=== PATIENT | male | born 1930 | race Caucasian/White ===

== ENCOUNTER 2018-11-07 12:14 | Inpatient (IN) | payer MEDICARE, BC ==
[2018-11-07] MEDS ORDERED: Aspirin Chewable 81 MG TAB ONE (12:38)
[2018-11-07] MEDS ORDERED: Nitroglycerin 0.4 MG TAB (25 Tab Bottle) ONE (12:40)
[2018-11-07] MEDS ORDERED: Diltiazem 125 MG/25 ML ONE (12:53)
[2018-11-07 12:58] LABS: #Basophils 0.1 thou/uL (0.0-0.2); #Eosinphils 0.1 thou/uL (0.0-0.7); #Lymphocytes 2.6 thou/uL (1.20-3.40); #Monocytes 0.8 thou/uL (0.11-0.59); #Neutrophils 5.9 thou/uL (1.40-6.50); %Basophils 1.3 % (0.0-1.0); %Eosinophils 1.5 % (0.0-10.0); %Lymphocytes 27.1 % (21.0-51.0); %Monocytes 8.3 % (0.0-10.0); %Neutrophils 61.8 % (42.0-75.0); Mean Corpuscular HGB CONC 32.5 g/dL (32.0-36.0); Mean Corpuscular Hemoglobin 29.6 pg (27.0-31.0); Mean Corpuscular Volume 91.1 fL (78.0-98.0); Mean Platelet Volume 8.3 fL (7.4-10.4); Platelet Count 239 thou/uL (130-400); RBC Distribution Width 13.1 % (11.5-14.5); Red Blood Cell (RBC) Count 5.06 mill/uL (4.70-6.10); White Blood Cell (WBC) Count 9.6 thou/uL (4.8-10.8)
--- NOTE | 2018-11-07 13:02 | RAD ---
RADIOGRAPH CHEST 1 VIEW: HISTORY: 88-year-old male with dyspnea. FINDINGS: There are no air space densities, pulmonary edema, pneumothorax, or cardiomegaly. The lateral costop hrenic angles are sharp. IMPRESSION: No acute cardiopulmonary findings. steve [] POS: AMADOR
[2018-11-07 13:04] LABS: ALT (SGPT) 29 U/L (8-55); AST (SGOT) 20 U/L (5-34); Albumin 3.7 g/dL (3.4-4.8); Alkaline Phosphatase 73 U/L (40-150); Anion Gap 11 mmol/L (10-20); BUN (Urea Nitrogen) 28 mg/dL (8.4-25.7); Bilirubin, Total 0.3 mg/dL (0.2-1.2); Calc. Creatinine Clearance 0 mL/min (70-130); Calcium 8.7 mg/dL (7.8-10.44); Carbon Dioxide 25 mmol/L (23-31); Chloride 109 mmol/L (98-107); Estimated GFR-MDRD 43; Globulin 3.8 g/dL (2.4-3.5); Glucose 89 mg/dL (83-110); Potassium 4.4 mmol/L (3.5-5.1); Protein, Total 7.5 g/dL (5.8-8.1); Sodium 141 mmol/L (136-145)
[2018-11-07 16:13] LABS: Troponin I 0.037 ng/mL (< 0.028)
[2018-11-07 16:48] VITALS: BMI 28.0
[2018-11-07] MEDS ORDERED: Acetaminophen 325 MG TAB PO PRN (17:30)
[2018-11-07] MEDS ORDERED: Sodium Chloride 0.9% 1,000 ML IV SCH (17:30)
[2018-11-07] MEDS ORDERED: Senokot S 8.6-50 MG TAB PO PRN (17:30)
[2018-11-07] MEDS ORDERED: Enoxaparin Sodium 80 MG/0.8 ML SYRINGE SC SCH (18:15)
[2018-11-07 19:11] LABS: Troponin I 0.044 ng/mL (< 0.028)
[2018-11-07] MEDS ORDERED: Metoprolol Tartrate 25 MG TAB PO SCH (21:00)
[2018-11-07] MEDS ORDERED: Famotidine 20 MG TAB PO SCH (21:00)
--- NOTE | 2018-11-07 22:36 | CON ---
DATE OF CONSULTATION: HISTORY OF PRESENT ILLNESS: The patient is an 88-year-old gentleman who presents with a fluttering sensation in his chest. The patient has no previous cardiac history. He was in his usual state of health when he developed acute onset of palpitations. The patient felt dyspneic. He denied having any diaphoresis. The patient denies having any present chest discomfort. PAST MEDICAL HISTORY: Urethral stricture. PAST SURGICAL HISTORY: None. SOCIAL HISTORY: Nonsmoker. MEDICATIONS: None. FAMILY HISTORY: Positive family history of cardiac disease. ALLERGIES: NO KNOWN DRUG ALLERGIES. PHYSICAL EXAMINATION: GENERAL: Well-developed gentleman, in no acute distress. VITAL SIGNS: Blood pressure 167/95. NECK: Shows no jugular venous distention. LUNGS: Clear to auscultation. HEART: Regular rate and rhythm. Normal S1, S2. No murmurs. ABDOMEN: Nondistended. EXTREMITIES: Show no edema. VASCULAR: Radial pulses 2+. LABORATORY DATA: Sodium 141, potassium 4.4, chloride 109, bicarbonate 25, BUN 28, creatinine 1.52. Troponin 0.037. EKG revealed atrial flutter with Q-waves suggestive of a previous inferior infarct. IMPRESSION: 1. Atrial flutter. 2. Abnormal electrocardiogram. 3. Hypertension. 4. Renal insufficiency. This elderly gentleman presents with new onset atrial fibrillation. His EKG suggestive of possible previous inferior infarct. We will check an echocardiogram. The patient will undergo stress testing to make sure it does not show severe ischemia with his advanced age, we will try to treat medically, may consider radiofrequency ablation during his hospitalization with his advanced age, he has a CHADS-VASc score of 2 and would recommend anticoagulation therapy. The patient is being treated with Lovenox. Further recommendations to follow. We will follow up during this hospitalization. Job ID: [id number]
--- NOTE | 2018-11-08 01:01 | HP ---
PRIMARY CARE PHYSICIAN: Dr. Cruz. CHIEF COMPLAINT: Shortness of breath and palpitations. HISTORY OF PRESENT ILLNESS: Mr. Hamilton is a very pleasant 88-year-old man, who reported to the emergency room today after he had an onset of shortness of breath with a funny feeling in his chest. Reports he had some of this yesterday and resolved, came back today. Reports that he has never had this happen before. Reports that he has never seen a electronics instructor before. Reports that he does see Dr. Cruz for checkups and the last one was about 6 months ago. Reports that he has been experiencing some fatigue with exertion, that has progressively been getting worse over the last several months. He lives at home. He is able to do all of his ADLs. He is actually quite active, mows his own yard, cleans his house, cooks for himself, does all his activities of daily living. Reports that he is getting more fatigued and he cannot do as much as he used to do. Denies any nausea or diaphoresis, any fevers or chills, any abdominal discomfort. In the emergency room today, the patient's initial EKG shows A-flutter, axis to the left. There is ST elevation in lead II. Subsequent EKGs show a similar initial rates per minute 136 and then 103, 76, 68, and the third EKG they did in the emergency room showed a unifocal premature ventricular complex, and then the last EKG prior to the patient being transferred was beats per minute 68 with premature atrial complexes, axis to the left. Dr. Ku in the emergency room called Dr. Mix, electronics instructor. With the initial EKG she reviewed, decided it was not an acute CO, recommended medication for A-flutter and then admitted for further management. The patient was given Cardizem intravenous in the emergency room and an aspirin. By the time he was transferred to [facility], his heart rate had come down to 68 and is currently rate controlled. REVIEW OF SYSTEMS: Reports shortness of breath. Reports that he had a funny feeling in his chest with palpitations. Denied any diaphoresis or chills. All other systems are reviewed and are negative unless mentioned in the HPI. PAST MEDICAL HISTORY: He has had a urinary stricture in the past. PAST SURGICAL HISTORY: None. PSYCHIATRIC HISTORY: None. SOCIAL HISTORY: Lives at home. Performs all his own ADLs. FAMILY HISTORY: Does have some siblings with some coronary artery disease. ALLERGIES: NONE. CURRENT MEDICATIONS: None. PHYSICAL EXAMINATION: VITAL SIGNS: Blood pressure 133/78, pulse 68, respirations 12, temp 98.1, and pO2 sats 94% on room air. GENERAL: The patient appears nontoxic, in no apparent distress. Reports that he would like to go home. He feels better. HEENT: Head is atraumatic and normocephalic. ENT; mouth exam is normal. Mucous membranes are moist. NECK: Normal range of motion. Trachea is midline. RESPIRATORY/CHEST: Breath sounds are clear. No findings of any respiratory distress. CARDIOVASCULAR: Irregular. Heart sounds are normal. ABDOMEN: Nontender. Bowel sounds are heard. EXTREMITIES: Upper extremity, pulses equal bilaterally. Normal range of motion. Motor strength is normal. Lower extremity, pedal pulses equal bilaterally. Sensation is intact. NEUROLOGIC: Speech is normal. There is no focal neurologic, sensory or motor deficits. SKIN: Warm, dry, normal in color. PSYCHIATRIC: He has a normal mood and normal affect. PERTINENT LABORATORY DATA: Hematology unremarkable. Sodium is 141, potassium is 4.4, chloride is 109, carbon dioxide is 25, gap is 11, BUN is 28, creatinine is 1.52, estimated GFR is 43, glucose is 89, and calcium is 8.7. Liver enzymes are unremarkable. First troponin is 0.014, second one is 0.037. PLAN/ASSESSMENT: 1. Atrial flutter, initially rapid ventricular response, but seems to be rate controlled. Troponin with a second one that is slightly bumped in the indeterminate range. BUN is also bumped, but we do not have any to compare it to. We have asked Cardiology to consult. Dr. Mix has already looked at the initial EKG. We will do normal saline at 75 mL per hour for at least 1 bag and see if we can increase his creatinine. Keep him on a heart monitor. 2. Deep venous thrombosis and gastrointestinal prophylaxis have been started. 3. Hospital course is dependent on clinical findings. Job ID: [id number]
[2018-11-08 06:52] LABS: #Basophils 0.1 thou/uL (0.0-0.2); #Eosinphils 0.2 thou/uL (0.0-0.7); #Lymphocytes 2.5 thou/uL (1.20-3.40); #Monocytes 0.6 thou/uL (0.11-0.59); #Neutrophils 3.6 thou/uL (1.40-6.50); %Basophils 0.9 % (0.0-1.0); %Eosinophils 2.5 % (0.0-10.0); %Lymphocytes 36.1 % (21.0-51.0); %Monocytes 8.3 % (0.0-10.0); %Neutrophils 52.3 % (42.0-75.0); Hemoglobin 12.6 g/dL (14.0-18.0); Mean Corpuscular HGB CONC 33.5 g/dL (32.0-36.0); Mean Corpuscular Hemoglobin 30.9 pg (27.0-31.0); Mean Corpuscular Volume 92.1 fL (78.0-98.0); Mean Platelet Volume 7.8 fL (7.4-10.4); Platelet Count 192 thou/uL (130-400); RBC Distribution Width 12.6 % (11.5-14.5); Red Blood Cell (RBC) Count 4.07 mill/uL (4.70-6.10); White Blood Cell (WBC) Count 6.9 thou/uL (4.8-10.8)
[2018-11-08 07:13] LABS: Anion Gap 8 mmol/L (10-20); BUN (Urea Nitrogen) 24 mg/dL (8.4-25.7); Calc. Creatinine Clearance 42 mL/min (70-130); Calcium 8.1 mg/dL (7.8-10.44); Carbon Dioxide 25 mmol/L (23-31); Cardiac Risk 4.5 (Less than 4.5); Chloride 109 mmol/L (98-107); Cholesterol 194 mg/dl (< 200 Desired); Estimated GFR-MDRD 53; Glucose 96 mg/dL (83-110); HDL Cholesterol 43 mg/dL (>60 Neg Risk); LDL Cholesterol, Calculated 131 mg/dL; Potassium 4.3 mmol/L (3.5-5.1); Sodium 138 mmol/L (136-145); Triglycerides 101 mg/dL (Less than 150)
[2018-11-08] MEDS ORDERED: Enoxaparin Sodium 80 MG/0.8 ML SYRINGE SC SCH ×2 (09:00→18:00)
--- NOTE | 2018-11-08 09:45 | PDOC.HOSPP ---
- Subjective Subjective: f/u for A-flutter RVR on Cardizem/Lovenox. SR now on tele with pending Echo. No new complaints. - Objective Vital Signs & Weight: Vital Signs (12 hours) Temp Pulse Resp BP Pulse Ox 11/08/18 07:41 97.6 F 60 16 158/90 H 96 11/08/18 03:15 97.8 F 73 18 138/73 96 Weight Weight 163 lb 8 oz Result Diagrams: 11/08/18 06:40 11/08/18 06:40 Additional Labs: Laboratory Tests 11/07/18 11/07/18 11/07/18 12:45 12:45 15:51 BUN 28 H Creatinine 1.52 H Troponin I 0.014 0.037 H TSH 3rd Generation 11/07/18 11/08/18 18:41 06:40 BUN Creatinine Troponin I 0.044 H TSH 3rd Generation 1.5436 Radiology Reviewed by me: Yes (PCXR - no acute process) EKG Reviewed by me: Yes (Tele - SR) ROS - Review of Systems All systems: All other ROS were reviewed and found negative. - Exam NAD, awake alert Eye: PERRL, anicteric sclera ENT: normocephalic atraumatic, no oropharyngeal lesions Neck: supple, symmetric, no JVD, no Thyromegaly, no carotid bruit Heart: RRR, no murmur, no gallops, no rubs, normal peripheral pulses Respiratory: CTAB, no wheezes, no rales, no ronchi, normal chest expansion Gastrointestinal: soft, non-tender, non-distended, normal bowel sounds, no palpable masses Extremities: no clubbing, no edema Skin: normal turgor Neurological: CN's grossly intact, no focal deficits, no new deficit Psychiatric: A&O x 3 Hosp A/P (1) Atrial flutter with rapid ventricular response Code(s): I48.92 - UNSPECIFIED ATRIAL FLUTTER Status: Acute Plan: SR currently, continue QUALITY REVIEWER today, 2D echo pending, rate-control strategy, consider OAC with CHADs-Vas score 2 (2) Acute on chronic kidney failure Code(s): N17.9 - ACUTE KIDNEY FAILURE, UNSPECIFIED; N18.9 - CHRONIC KIDNEY DISEASE, UNSPECIFIED Status: Acute Plan: Improved with hydration, avoid nephrotoxic meds and limit contrast exposure, serial creatinine (3) Demand ischemia of myocardium Code(s): I24.8 - OTHER FORMS OF ACUTE ISCHEMIC HEART DISEASE Status: Acute Plan: Secondary to #1, QUALITY REVIEWER pending (4) Generalized weakness Code(s): R53.1 - WEAKNESS Status: Acute Plan: Likely due to #1, consider PT evaluation for functional assessment - Plan plan discussed w/ family, PT/OT, addiction social worker, out of bed/ambulate, DVT proph w/SCDs Stable currently Continue QUALITY REVIEWER today 2D echo pending Rate-control measures Consider OAC options AM lab: BMP
--- NOTE | 2018-11-08 14:25 | NM ---
EXAM: Nuclear medicine cardiac SPECT with EF and wall motion: HISTORY: Chest pain, atrial flutter, family history of coronary artery disease Protocol: Exam was performed using Mitchell protocol. The patient is injected with27.8 millicuries of technetium 99m sestamibi intravenously for stress pedro ges. The patient is injected with9.2 millicuries of technetium 99 sestamibi intravenously for resting imag es. Multiple SPECT images are performed in the short axis, vertical long axis, and horizontal long axis. FINDINGS: No scan evidence for infarct or ischemia. TID:1.09 LHR:0.36 EDV:61 mL EF:67% Wall motion:Normal IMPRESSION: No evidence for infarct or ischemia.
[2018-11-08] MEDS ORDERED: Enoxaparin Sodium 30 MG/0.3 ML SYRINGE SC SCH (18:00)
[2018-11-08] MEDS ORDERED: Famotidine 20 MG TAB PO SCH (21:00)
[2018-11-09 04:49] LABS: Platelet Count 194 thou/uL (130-400)
[2018-11-09 05:07] LABS: Anion Gap 11 mmol/L (10-20); BUN (Urea Nitrogen) 19 mg/dL (8.4-25.7); Calc. Creatinine Clearance 49 mL/min (70-130); Calcium 8.2 mg/dL (7.8-10.44); Carbon Dioxide 21 mmol/L (23-31); Chloride 109 mmol/L (98-107); Estimated GFR-MDRD 64; Glucose 102 mg/dL (83-110); Potassium 4.1 mmol/L (3.5-5.1); Sodium 137 mmol/L (136-145)
--- NOTE | 2018-11-09 11:54 | CON ---
DATE OF CONSULTATION: 11/09/2018 REQUESTING PHYSICIAN: Bear Puckett MD REASON FOR CONSULTATION: Atrial arrhythmias. HISTORY OF PRESENT ILLNESS: Donna Hamilton is an 88-year-old gentleman. He presented to the hospital with atrial arrhythmias for which he was symptomatic. He has been told he had an irregular heartbeat by [facility] in the past, but nothing sustained. This event occurred out of the blue. He was out working and suddenly noticed his heart rate was racing. He came into the emergency room, was found to be in an atrial arrhythmia at 130 beats per minute. He was given Cardizem and the arrhythmia terminated. Since he has been in sinus rhythm, he has been slightly bradycardic but not symptomatic. He is without any new complaints. PAST MEDICAL HISTORY: That were aware of is the atrial arrhythmia. He was diagnosed with flutter, although it appears to be an atrial tachycardia. CURRENT MEDICATIONS: See reconciled list. FAMILY HISTORY: Negative for premature coronary artery disease, sudden , arrhythmias, or pacemaker. SOCIAL HISTORY: The patient is a former tobacco smoker. Denies any heavy alcohol use or illicit drug use. REVIEW OF SYSTEMS: CONSTITUTIONAL: No fever, chills, night sweats, or other constitutional findings. HEENT: No change in vision or hearing. NEUROLOGIC: No TIAs, strokes or seizures. PULMONARY: No reactive airway disease, obstructive lung disease, or recurrent pneumonias. GASTROINTESTINAL: No acid peptic disease, melena, or hematochezia. GENITOURINARY: No frequency or dysuria. CARDIOVASCULAR: No claudication. ENDOCRINE: No diabetes or thyroid dysfunction. HEMATOLOGIC: No history of blood dyscrasias. MUSCULOSKELETAL: No arthritis, arthralgias or gout. PSYCHIATRIC: No depression or anxiety. DERMATOLOGIC: No rashes or skin cancer. AUTOIMMUNE: No autoimmune disease. Except as outlined in the HPI. PHYSICAL EXAMINATION: VITAL SIGNS: Blood pressure 125/70, pulse is 65 and regular, and respirations 18. GENERAL: This is an elderly gentleman. He appears much younger than his stated age. HEENT: Shows poor dentition. NECK: Supple with no obvious JVD. HEART: Regular rate. Normal S1 and S2. LUNGS: Clear with symmetric breath sounds. ABDOMEN: Soft. EXTREMITIES: Without edema. SKIN: Warm and dry. NEUROLOGIC: Nonfocal. DIAGNOSTIC DATA: Electrocardiogram on admission demonstrates an atrial arrhythmia likely with 2:1 conduction. It does not look like classic atrial flutter, although it could theoretically be clockwise isthmus-dependent flutter, more likely this is an atrial tachycardia. MEDICAL DECISION MAKING: I had a 15-minute discussion with Mr. Hamilton and his daughter. We talked about all treatment options and all alternatives. At this point, he would choose conservative management with aspirin 81 mg daily for the time being. If this becomes a recurrent problem, he would consider invasive procedure, potential ablative procedure or medical suppression at the moment, though he would prefer no treatment. IMPRESSION: Atrial arrhythmias, probably an atrial tachycardia or possibly clockwise isthmus-dependent flutter. RECOMMENDATIONS: 1. Continue with conservative management including aspirin 81 mg daily. 2. Follow up p.r.n. in the event of recurrent arrhythmias. Job ID: [id number]
--- NOTE | 2018-11-09 11:59 | DIS ---
DATE OF ADMISSION: 11/07/2018 DATE OF DISCHARGE: 11/09/2018 DISCHARGE DIAGNOSES: 1. Atrial flutter with rapid ventricular response, converting to sinus mechanism. 2. Acute on chronic kidney disease, improved. 3. Demand ischemia of the myocardium secondarily to #1. 4. Generalized weakness, improved. CONSULTATIONS: 1. Dr. Croft with Electrophysiology Service. 2. Dr. Puckett with Cardiology Service. PERTINENT LAB AND X-RAY FINDINGS: Creatinine ranged between 1.09 to 1.52. Estimated GFR ranged between 43 to 64. Troponin-I ranged between 0.014 to 0.044. TSH 1.54. CBC showed a hemoglobin ranging between 12.6 to 15.0. Portable chest x-ray dated 11/07/2018, showed no acute cardiopulmonary process. Cardiolite stress test dated 11/08/2018, showed no evidence for reversible or fixed ischemia, calculated ejection fraction of 67%. 2D transthoracic echocardiogram dated 11/08/2018, showed ejection fraction of 50% to 55%. Diastolic dysfunction noted. Ehtb-al-ldrnhkhl tricuspid regurgitation noted. HOSPITAL COURSE: The patient was initially admitted to the telemetry unit after presenting with generalized weakness and shortness of breath with palpitations. The patient was initially noted on telemetry monitoring with atrial flutter with heart rates up to 136 beats per minute with apparent rapid ventricular response. The patient was placed on Cardizem infusion and given aspirin and Lovenox. The patient rapidly converted to sinus mechanism and was evaluated by the Cardiology Service. The patient underwent ischemic rule out including Cardiolite stress testing and 2D transthoracic echocardiogram, confirming preserved ejection fraction. The patient was initiated on metoprolol-XL 25 mg daily and evaluated by the Electrophysiology Service. The patient opted to pursue conservative management with medical therapy and not pursue any aggressive intervention or ablation at this time. The patient remained clinically stable during the hospital course, tolerating regular oral intake with stable vital signs. I have examined the patient at the time of discharge and discussed followup instructions. The patient verbalized understanding and agreement, ready for discharge on 11/09/2018. DISCHARGE MEDICATIONS: 1. Metoprolol-XL 25 mg one tablet p.o. daily. 2. Enteric-coated aspirin 81 mg p.o. daily. FOLLOWUP: The patient may follow up with Dr. Bakari Cruz within 7 days of discharge. CONDITION ON DISCHARGE: Stable. ACTIVITY: Ad-benito. DIET: Regular. CODE STATUS: Full. DISPOSITION: To home on 11/09/2018. Job ID: [id number]
[2018-11-09 12:16] VITALS: BP 150/89; TEMP 97.6
== END 2018-11-09 13:06 | disposition home or self-care (01) | DRG 309 ==
LOC: SCSER 12:14 → 2NO 16:25
PROVIDERS: ADMIT Internal Medicine; ATTEND Internal Medicine
DX: I48.92 Unspecified atrial flutter (principal); I24.8 Other forms of acute ischemic heart disease; N17.9 Acute kidney failure, unspecified; I12.9 Hypertensive chronic kidney disease with stage 1 through stage 4 chronic kidney disease, or unspecified chronic kidney disease; N18.9 Chronic kidney disease, unspecified; Z87.891 Personal history of nicotine dependence
CPT/HCPCS: 36415; 71045; 78452; 80048; 80053; 80061; 84443; 84484; 85014; 85018; 85025; 85049; 93005; 93017; 93306; 96365; 96376; A9500; J1650